=== PATIENT | male | born 1950 | race Asian ===

== ENCOUNTER 2020-08-29 11:47 | Emergency (ER) | payer OTHER | END 2020-08-29 13:32 | disposition home or self-care (01) | LOC: JVIRT 11:47 | DX: Z03.818 Encounter for observation for suspected exposure to other biological agents ruled out (principal) | CPT/HCPCS: C9803; G2012-GT; Q3014-GT; U0003 ==

== ENCOUNTER 2020-08-31 13:42 | Emergency (ER) | payer OTHER, MEDICARE | END 2020-08-31 15:19 | disposition home or self-care (01) | LOC: JVIRT 13:42 | DX: Z03.818 Encounter for observation for suspected exposure to other biological agents ruled out (principal) | CPT/HCPCS: C9803; Q3014-GT; U0003 ==